=== PATIENT | female | born 1975 | race Caucasian/White ===

== ENCOUNTER 2024-07-07 03:09 | Emergency (ER) | payer BC ==
[~2024-07-07] VITALS: Ht 172.7 cm; Wt 80.9 kg
[2024-07-07 03:13] VITALS: BP 152/96; PULSE 95; RESP 16; TEMP 98.6; O2SAT 97
[2024-07-07] MEDS ORDERED: AMOX400S5 PO (04:37)
[2024-07-07] MEDS ORDERED: IBUP-2766 PO (05:05)
== END 2024-07-07 05:09 | disposition home or self-care (01) ==
LOC: ER 03:10
DX: K04.7 Periapical abscess without sinus (principal)
CPT/HCPCS: 99282; 99283